=== PATIENT | female | born 1985 | race Two or more races ===

== ENCOUNTER 2020-12-09 17:31 | Inpatient (IN) ==
[2020-12-09] MEDS ORDERED: MAGNESIUM HYDROXIDE SUSP 30 ML UDC PO PRN (19:01)
[2020-12-09] MEDS ORDERED: SODIUM CHLORIDE 0.65% NA SOLN 45 ML (OCEAN) PRN (19:01)
[2020-12-09] MEDS ORDERED: ACETAMINOPHEN 325 MG TAB PO PRN (19:01)
[2020-12-09] MEDS ORDERED: ALUMINUM/MAGNESIUM SUSP 30 ML UDC PO PRN (19:01)
[2020-12-09] MEDS ORDERED: BISMUTH SUBSALICYLATE LIQD 236 ML PO PRN (19:01)
[2020-12-09] MEDS ORDERED: OLANZapine 5 MG TABLET PO PRN (21:46)
[2020-12-09] MEDS ORDERED: NON-FORMULARY PATIENT'S OWN MED EXT SCH (22:00)
[2020-12-09] MEDS: BENZTROPINE MESYLATE 1 MG TAB PO SCH (22:41)
[2020-12-09] MEDS: TRETINOIN 0.05% EXT SCH (22:42)
[2020-12-09] MEDS: NICOTINE 21 MG/24 HR TDSY TD SCH (22:42)
[2020-12-10] MEDS: VIENVA PO SCH (08:58)
[2020-12-10] MEDS: BENZTROPINE MESYLATE 1 MG TAB PO SCH ×2 (09:00→20:41)
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
[2020-12-10] MEDS: NICOTINE POLACRILEX 2 MG GUM MT PRN ×2 (14:42→18:59)
[2020-12-10] MEDS: clonazePAM 0.5 MG TAB PO PRN (14:43)
[2020-12-10] MEDS: LURASIDONE HCL 40 MG TAB PO SCH (17:52)
[2020-12-10] MEDS ORDERED: diphenhydrAMINE 50 MG/ML VIAL PO PRN (20:38)
[2020-12-10] MEDS: NICOTINE 21 MG/24 HR TDSY TD SCH (20:42)
[2020-12-10] MEDS: TRETINOIN 0.05% EXT SCH (20:42)
[2020-12-10] MEDS ORDERED: diphenhydrAMINE Capsule 25 MG CAP PO PRN ×2 (22:22→22:45)
[2020-12-11] MEDS: BENZTROPINE MESYLATE 1 MG TAB PO SCH (08:25)
[2020-12-11] MEDS: VIENVA PO SCH (08:25)
[2020-12-11] MEDS: SPIRONOLACTONE 25 MG TAB PO SCH (08:27)
[2020-12-11] MEDS: hydrOXYzine HCl 25 MG TAB PO PRN ×2 (08:28→22:17)
[2020-12-11] MEDS ORDERED: SERTRALINE HCL 50 MG TABLET PO SCH (09:00)
[2020-12-11 09:15] LABS: Glucose Fasting 101 mg/dl (70-99)
[2020-12-11 09:21] LABS: Chol HDL Ratio 3; Cholesterol 213 mg/dl (0-200); HDL Cholesterol 85 mg/dl; LDL Cholesterol Calculated 112 mg/dl; Triglycerides 82 mg/dl (0-150); VLDL Cholesterol 16 mg/dl
[2020-12-11] MEDS: NICOTINE POLACRILEX 2 MG GUM MT PRN ×3 (09:35→21:09)
--- NOTE | 2020-12-11 13:59 | Psychiatric Progress Note ---
Date of Service December 11, 2020 Impression / Recommendations Impression ALCIDES JAY is a 35-year-old woman who currently lives in [facility] and is in the midst of re-locating to [place] temporarily with her boyfriend, has a history of BPAD vs schizoaffective disorder, PTSD, opioid use disorder in sustained remission, 6 prior suicide attempts and 6 prior psychiatric hospitalizations (last 2017 at [facility]), and was admitted on 12/09/20 20:50 on a 201 voluntary commitment as an OSH referral from [facility] for worsening depression and PTSD symptoms with paranoia.The patient is deemed unstable and requires psychiatric hospitalization for diagnostic clarification, safety and stabilization, medication management and development of further coping skills. Differential includes MDD with psychotic features vs BPAD vs substance- induced/withdrawal (negative UDS and denies any significant substance use but recently ran out of her script for outpatient benzodiazepines) vs complex PTSD vs BPD. Discussed medication and treatment options at length including risks/be nefits/alteratives. Notable while at [facility] she received a one time dose of lamictal 400mg, after she had not taken her outpatient script for 2 weeks, so will monitor for Lazo Severo reaction and avoid restarting lamictal at this point especially since adherence can be challenging for her and this increases the risk of this potential fatal side effect. Also discussed reducing her Klono pin dosage and changing to prn and that only 5 tabs will be provided on discharge which she understands, reviewed SCHEDULING AGENT-last Klonopin script was written in June but not picked up until 11/04/20 and she has one remaining refill so will need to ensure this is canceled with pharmacy before discharge. She would like to try sertraline for depression and PTSD instead of Effexor so will make this change. Even with the tardive dyskinesia she wishes to continue with latuda so will restart this at a lower dose especially given ongoing paranoia. She finds benadryl rather than cogentin most helpful for TD so will continue this. -MNPR for psychiatric reasons due to paranoid ideation/emotional lability with periods of high anxiety (1) Tardive dyskinesia: (2) Major depression, recurrent: (3) Post traumatic stress disorder (PTSD): (4) Major depressive disorder with psychotic features: 12/10/20-Added benadryl 50 mg BID prn for her request for tardive dyskinesia symptoms. Continue with latuda, sertraline, Klonopin prn. No signs of acute paranoia or psychosis. Cholesterol and glucose slightly elevated, other fasting lipids normal, will need to be monitored closely if she remains on latuda long-term and emphasizes need to remain at lowest possible effective dose especially given baseline of TD. 12/09/20-The patient was admitted to the [facility] on q15 min checks (behavioral with suicide precautions) for safety. The patient will participate in group, recreational, and milieu therapies and will be offered additional individual and family sessions as clinically appropriate. -Start latuda 20mg qdinner. Has TD present. Getting baseline fasting labs. 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 -NRT patch and gum Inventory Assets Strengths: supportive partner, outpatient providers Needs: coping skills, medication adjustment Risk Factors Assessment : Yes Do You Have Access To A Gun?: No Health Problems: Yes Mental Health Diagnoses: Yes Substance Use Disorders: No Previous Attempt: Yes Family History of Suicide: Yes Previous Psychiatric Hospitalization: Yes Hopelessness: No Smoker: Yes Protective Factors Assessment Responsible for Young Children: Yes Stable Relationships: Yes Supportive Family: Yes Good Rapport with Provider: Yes Interval History Identifying Information ALCIDES JAY is a 35-year-old woman who currently lives in [facility] and is in the midst of re-locating to [place] temporarily with her boyfriend, has a history of BPAD vs schizoaffective disorder, PTSD, opioid use disorder in sustained remission, 6 prior suicide attempts and 6 prior psychiatric hospitalizations (last 2017 at [facility]), and was admitted on 12/09/20 20:50 on a 201 voluntary commitment as an OSH referral from [facility] for worsening depression and PTSD symptoms with paranoia. Chief Complaint "I'm trying to stay focused on the good things". Review of Systems Sleep Information Total Hours of Sleep: 8 Sleep Comments: pt on q-15 minute checks Meal Information Percent Meal Consumed - Breakfast: 80 Percent Meal Consumed - Lunch: 0 Percent Meal Consumed - Dinner: 50 Nutrition Comment: refused - per meal record Subjective Subjective Patient was seen & assessed and interval progress reviewed with treatment team nursing and social work. Today she reports improving mood and reflects that "I let me paranoia overwhelm me" prior to admission. She feels safe here and wants to continue working on coping skills which she is finding helpful. Had some nightmares last night but feels she is processing these well this morning and was able to fall back asleep. Continues to have anxiety and feel overwhelmed by pressure from family and trying to make right decisions about where to live and raise her children. Reflects on her goal of returning to work in the future. Denies any medication side effects. Physical Exam Psychiatric Orientation: alert and oriented x 3 Apperance: appropriately dressed and appropriately groomed Eye Contact: good eye contact Motor Behavior: steady gait and station and + EPS (TD visible with mouth movements and foot movement); n akathisia and n tremor Speech: normal rate/rhythm/volume of speech Affect: + anxious affect Mood: + anxious mood; no depressed mood Thought Process: + circumstantial thought process Thought Content: + cognitive distortions and reality based without delusions Suicidal Thoughts: denies suicidal thoughts Homicidal Thoughts: denies homicidal thoughts Hallucinations: no auditory hallucinations and no visual hallucinations Cognition: recent memory grossly intact, remote memory grossly intact, attention grossly intact and language grossly intact Estimated Intelligence: consistent with education level Insight: + fair insight Judgement: + limited judgement Vital Signs (Past 24 Hours) Last Vital Signs Temp 36.9 C 12/11/20 06:53 Pulse 74 12/11/20 06:54 Resp 16 12/11/20 06:53 BP 107/74 12/11/20 06:54 Results & Data ([facility]) Laboratory Results Laboratory Results - last 24 hr 12/11/20 08:21 Fasting Glucose 101 H Triglycerides 82 Cholesterol 213 H LDL Cholesterol, Calc 112 VLDL Cholesterol, Calc 16 HDL Cholesterol 85 Cholesterol/HDL Ratio 3 Current Inpatient Medications Current Inpatient Medications: Current Inpatient Medications Acetaminophen (Acetaminophen 325 Mg Tab) 650 mg PO Q4H PRN PRN Reason: Headache or Minor Fever Stop: 01/08/21 19:00 Al Hydrox/Mg Hydrox/Simethicone (Aluminum/Magnesium Susp 30 Ml Udc) 30 ml PO Q4H PRN PRN Reason: GI Upset Stop: 01/08/21 19:00 Benztropine Mesylate (Benztropine Mesylate 1 Mg Tab) 1 mg PO BID АНДРЕЙ Stop: 01/08/21 21:59 Last Admin: 12/11/20 08:25 Dose: 1 mg Documented by: Bismuth Subsalicylate (Bismuth Subsalicylate Liqd 236 Ml) 15 ml PO PRN PRN PRN Reason: Loose Stool Stop: 01/08/21 19:00 Clonazepam (Clonazepam 0.5 Mg Tab) 0.5 mg PO DAILY PRN PRN Reason: Anxiety/Agitation Stop: 01/09/21 13:49 Last Admin: 12/10/20 14:43 Dose: 0.5 mg Documented by: Diphenhydramine HCl (Diphenhydramine Capsule 25 Mg Cap) 50 mg PO BID PRN PRN Reason: Anxiety/Insomnia Stop: 01/10/21 20:59 Hydroxyzine HCl (Hydroxyzine Hcl 25 Mg Tab) 50 mg PO HSZ PRN PRN Reason: Insomnia Stop: 01/08/21 19:00 Hydroxyzine HCl (Hydroxyzine Hcl 25 Mg Tab) 25 mg PO Q4H PRN PRN Reason: Anxiety Stop: 01/08/21 19:00 Last Admin: 12/11/20 08:28 Dose: 25 mg Documented by: Lurasidone HCl (Lurasidone Hcl 40 Mg Tab) 20 mg PO QDD [facility] Stop: 01/09/21 17:44 Last Admin: 12/10/20 17:52 Dose: 20 mg Documented by: Magnesium Hydroxide (Magnesium Hydroxide Susp 30 Ml Udc) 30 ml PO DAILY PRN PRN Reason: Constipation Stop: 01/08/21 19:00 Miscellaneous (Remove Nicoderm Patch) 1 ea N/A 2159 [facility] Stop: 01/09/21 21:58 Last Admin: 12/10/20 20:41 Dose: 1 ea Documented by: Miscellaneous (Zonisamide 100 Mg: Order Awaiting Action) 1 ea N/A QS [facility] Stop: 01/09/21 15:59 Last Admin: 12/11/20 08:24 Dose: Not Given Documented by: Nicotine (Nicotine 21 Mg/24 Hr Tdsy) 21 mg TD 2200 АНДРЕЙ Stop: 01/08/21 21:59 Last Admin: 12/10/20 20:42 Dose: 21 mg Documented by: Nicotine Polacrilex (Nicotine Polacrilex 2 Mg Gum) 1 piece MT PRN PRN PRN Reason: nicotine craving Stop: 01/09/21 13:47 Last Admin: 12/11/20 09:35 Dose: 1 piece Documented by: *Snow*Non- Formulary Patient's Own Med 1 ea PO QAM АНДРЕЙ Stop: 01/09/21 08:59 Last Admin: 12/11/20 08:25 Dose: 1 ea Documented by: *Tretinoin 0.05%*Non -Formulary Patient's Own Med 1 ea EXT HS АНДРЕЙ Stop: 01/08/21 21:59 Last Admin: 12/10/20 20:42 Dose: 1 ea Documented by: Olanzapine (Olanzapine 5 Mg Tablet) 5 mg PO HS PRN PRN Reason: Anxiety/Agitation Stop: 01/08/21 21:59 Last Admin: 12/09/20 22:43 Dose: 5 mg Documented by: Sertraline HCl (Sertraline Hcl 50 Mg Tablet) 25 mg PO QAM АНДРЕЙ Stop: 01/10/21 08:59 Last Admin: 12/11/20 08:26 Dose: 25 mg Documented by: Sodium Chloride (Sodium Chloride 0.65% Na Soln 45 Ml ([place])) 1 - 2 sprays NA PRN PRN PRN Reason: Nasal Dryness/Congestion Stop: 01/08/21 19:00 Spironolactone (Spironolactone 25 Mg Tab) 50 mg PO DAILY АНДРЕЙ Stop: 01/10/21 08:59 Last Admin: 12/11/20 08:27 Dose: 50 mg Documented by: Mental Health & Subst Abuse Tx Therapist Name of Therapist: [facility] [employer] Name of [employer]: Julianne Osman Phone Number for [employer]: [phone] Post Discharge Appointments Contact Information Discharge Discharge Address: [address] [place] [address]
[2020-12-11] MEDS ORDERED: DOCUSATE SODIUM/SENNA 50/8.6MG TAB PO PRN (15:58)
[2020-12-11] MEDS: clonazePAM 0.5 MG TAB PO PRN (16:46)
[2020-12-11] MEDS: LURASIDONE HCL 40 MG TAB PO SCH (16:46)
[2020-12-11] MEDS: diphenhydrAMINE Capsule 25 MG CAP PO PRN (19:40)
[2020-12-11] MEDS ORDERED: diphenhydrAMINE Capsule 25 MG CAP PO SCH (21:00)
[2020-12-11] MEDS: ZONISAMIDE 100 MG CAPSULE PO SCH (21:09)
[2020-12-11] MEDS: NICOTINE 21 MG/24 HR TDSY TD SCH (21:10)
[2020-12-11] MEDS: TRETINOIN 0.05% EXT SCH (21:12)
[2020-12-12] MEDS: SPIRONOLACTONE 25 MG TAB PO SCH (08:31)
[2020-12-12] MEDS: SERTRALINE HCL 50 MG TABLET PO SCH (08:32)
[2020-12-12] MEDS: VIENVA PO SCH (08:32)
[2020-12-12] MEDS: NICOTINE POLACRILEX 2 MG GUM MT PRN ×3 (09:54→21:14)
[2020-12-12] MEDS: hydrOXYzine HCl 25 MG TAB PO PRN ×3 (14:17→23:49)
[2020-12-12] MEDS: clonazePAM 0.5 MG TAB PO PRN (16:28)
[2020-12-12] MEDS: LURASIDONE HCL 40 MG TAB PO SCH (17:18)
--- NOTE | 2020-12-12 19:04 | Psychiatric Progress Note ---
Date of Service December 12, 2020 Impression / Recommendations Impression ALCIDES JAY is a 35-year-old woman who currently lives in [facility] and is in the midst of re-locating to [place] temporarily with her boyfriend, has a history of BPAD vs schizoaffective disorder, PTSD, opioid use disorder in sustained remission, 6 prior suicide attempts and 6 prior psychiatric hospitalizations (last 2017 at [place]), and was admitted on 12/09/20 20:50 on a 201 voluntary commitment as an OSH referral from [facility] for worsening depression and PTSD symptoms with paranoia.The patient is deemed unstable and requires psychiatric hospitalization for diagnostic clarification, safety and stabilization, medication management and development of further coping skills. Diagnosis felt to be most consistent with PTSD. -MNPR for psychiatric reasons due to periods of high anxiety (1) Tardive dyskinesia: (2) Major depression, recurrent: (3) Post traumatic stress disorder (PTSD): (4) Major depressive disorder with psychotic features: 12/12/20-Continue current medications. Reviewed resources she can utilize and confirmed that she has an appointment with a new PCP in [place] next week. She agrees she will contact our unit to have our records faxed to the new provider once she returns to [place]. Future-oriented about her goals of returning to work and setting a good example for her sons. 12/11/20-Increased sertraline from 25 mg qd to 50mg qd for depression and PTSD. 12/10/20-Added benadryl 50 mg BID prn for her request for tardive dyskinesia symptoms. Continue with latuda, sertraline, Klonopin prn. No signs of acute paranoia or psychosis. Cholesterol and glucose slightly elevated, other fasting lipids normal, will need to be monitored closely if she remains on latuda long- term and emphasizes need to remain at lowest possible effective dose especially given baseline of TD. 12/09/20-The patient [facility] ([facility] inpatient mental health unit) on q15 min checks (behavioral with suicide precautions) for safety. The patient will participate in group, recreational, and milieu therapies and will be offered additional individual and family sessions as clinically appropriate. -Start latuda 20mg qdinner. Has TD present. Getting baseline fasting labs. 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 -NRT patch and gum Inventory Assets Strengths: supportive partner, outpatient providers Needs: coping skills, medication adjustment Risk Factors Assessment : Yes Do You Have Access To A Gun?: No Health Problems: Yes Mental Health Diagnoses: Yes Substance Use Disorders: No Previous Attempt: Yes Family History of Suicide: Yes Previous Psychiatric Hospitalization: Yes Hopelessness: No Smoker: Yes Protective Factors Assessment Responsible for Young Children: Yes Stable Relationships: Yes Supportive Family: Yes Good Rapport with Provider: Yes Interval History Identifying Information ALCIDES JAY is a 35-year-old woman who currently lives in [facility] and is in the midst of re-locating to [place] temporarily with her boyfriend, has a history of BPAD vs schizoaffective disorder, PTSD, opioid use disorder in sustained remission, 6 prior suicide attempts and 6 prior psychiatric hospitalizations (last 2017 at [place]), and was admitted on 12/09/20 20:50 on a 201 voluntary commitment as an OSH referral from [facility] for worsening depression and PTSD symptoms with paranoia. Chief Complaint "I'm nervous about leaving but I'm ready to get a job and show my kids what a good mom I can be". Review of Systems Sleep Information Total Hours of Sleep: 7.5 Sleep Comments: pt on q-15 minute checks Meal Information Percent Meal Consumed - Breakfast: 100 Percent Meal Consumed - Lunch: 100 Percent Meal Consumed - Dinner: 75 Nutrition Comment: refused - per meal record Subjective Subjective Patient was seen & assessed and interval progress reviewed with treatment team nursing and social work. Julio reports stable mood with some anxiety about leaving the hospital tomorrow for planned morning discharge. She denies any paranoia or psychosis symptoms and feels her PTSD is stable. Mood is stable. She is future-oriented about seeing her disability case manager before returning to [place] where she has an appointment scheduled with her new PCP there for next week. She plans to look into job options as she would like to start working again once and setting a good example for her kids. Discusses the challenge of balancing her family's worries about her being further from home with her desire to start fresh in a new place where she won't have as many trauma-reminders. No medicat ion side effects. Physical Exam Psychiatric Orientation: alert and oriented x 3 Apperance: appropriately dressed and appropriately groomed Eye Contact: good eye contact Motor Behavior: steady gait and station and + EPS (TD visible with mouth movements and foot movement); n akathisia and n tremor Speech: normal rate/rhythm/volume of speech Affect: euthymic affect Mood: + anxious mood; no depressed mood Thought Process: + circumstantial thought process Thought Content: reality based without delusions Suicidal Thoughts: denies suicidal thoughts Homicidal Thoughts: denies homicidal thoughts Hallucinations: no auditory hallucinations and no visual hallucinations Cognition: recent memory grossly intact, remote memory grossly intact, attention grossly intact and language grossly intact Estimated Intelligence: consistent with education level Insight: + fair insight Vital Signs (Past 24 Hours) Last Vital Signs Temp 36.9 C 12/12/20 06:53 Pulse 82 12/12/20 06:56 Resp 18 12/12/20 06:53 BP 101/62 12/12/20 06:56 Pulse Ox 98 12/12/20 06:53 Results & Data ([facility]) Current Inpatient Medications Current Inpatient Medications: Current Inpatient Medications Acetaminophen (Acetaminophen 325 Mg Tab) 650 mg PO Q4H PRN PRN Reason: Headache or Minor Fever Stop: 01/08/21 19:00 Last Admin: 12/12/20 16:23 Dose: 650 mg Documented by: Al Hydrox/Mg Hydrox/Simethicone (Aluminum/Magnesium Susp 30 Ml Udc) 30 ml PO Q4H PRN PRN Reason: GI Upset Stop: 01/08/21 19:00 Bismuth Subsalicylate (Bismuth Subsalicylate Liqd 236 Ml) 15 ml PO PRN PRN PRN Reason: Loose Stool Stop: 01/08/21 19:00 Clonazepam (Clonazepam 0.5 Mg Tab) 0.5 mg PO DAILY PRN PRN Reason: Anxiety/Agitation Stop: 01/09/21 13:49 Last Admin: 12/12/20 16:28 Dose: 0.5 mg Documented by: Diphenhydramine HCl (Diphenhydramine Capsule 25 Mg Cap) 50 mg PO BID PRN PRN Reason: Anxiety/Insomnia Stop: 01/10/21 20:59 Last Admin: 12/11/20 19:40 Dose: 50 mg Documented by: Hydroxyzine HCl (Hydroxyzine Hcl 25 Mg Tab) 50 mg PO HSZ PRN PRN Reason: Insomnia Stop: 01/08/21 19:00 Last Admin: 12/11/20 22:17 Dose: 50 mg Documented by: Hydroxyzine HCl (Hydroxyzine Hcl 25 Mg Tab) 25 mg PO Q4H PRN PRN Reason: Anxiety Stop: 01/08/21 19:00 Last Admin: 12/12/20 14:17 Dose: 25 mg Documented by: Lurasidone HCl (Lurasidone Hcl 40 Mg Tab) 20 mg PO QDD [facility] Stop: 01/09/21 17:44 Last Admin: 12/12/20 17:18 Dose: 20 mg Documented by: Magnesium Hydroxide (Magnesium Hydroxide Susp 30 Ml Udc) 30 ml PO DAILY PRN PRN Reason: Constipation Stop: 01/08/21 19:00 Miscellaneous (Remove Nicoderm Patch) 1 ea N/A 0599 [facility] Stop: 01/09/21 21:58 Last Admin: 12/11/20 21:10 Dose: 1 ea Documented by: Nicotine (Nicotine 21 Mg/24 Hr Tdsy) 21 mg TD 2200 [facility] Stop: 01/08/21 21:59 Last Admin: 12/11/20 21:10 Dose: 21 mg Documented by: Nicotine Polacrilex (Nicotine Polacrilex 2 Mg Gum) 1 piece MT PRN PRN PRN Reason: nicotine craving Stop: 01/09/21 13:47 Last Admin: 12/12/20 16:28 Dose: 1 piece Documented by: *Snow*Non- Formulary Patient's Own Med 1 ea PO QAM [facility] Stop: 01/09/21 08:59 Last Admin: 12/12/20 08:32 Dose: 1 ea Documented by: *Tretinoin 0.05%*Non -Formulary Patient's Own Med 1 ea EXT HS АНДРЕЙ Stop: 01/08/21 21:59 Last Admin: 12/11/20 21:12 Dose: 1 ea Documented by: Senna/Docusate Sodium (Docusate Sodium/Senna 50/8.6mg Tab) 1 tab PO BID PRN PRN Reason: Constipation Stop: 01/10/21 20:59 Last Admin: 12/11/20 22:17 Dose: 1 tab Documented by: Sertraline HCl (Sertraline Hcl 50 Mg Tablet) 50 mg PO QAM [facility] Stop: 01/11/21 08:59 Last Admin: 12/12/20 08:32 Dose: 50 mg Documented by: Sodium Chloride (Sodium Chloride 0.65% Na Soln 45 Ml ([place])) 1 - 2 sprays NA PRN PRN PRN Reason: Nasal Dryness/Congestion Stop: 01/08/21 19:00 Spironolactone (Spironolactone 25 Mg Tab) 50 mg PO DAILY АНДРЕЙ Stop: 01/10/21 08:59 Last Admin: 12/12/20 08:31 Dose: 50 mg Documented by: Zonisamide (Zonisamide 100 Mg Capsule) 100 mg PO HS АНДРЕЙ Stop: 01/10/21 21:59 Last Admin: 12/11/20 21:09 Dose: 100 mg Documented by: Mental Health & Subst Abuse Tx Psychiatrist Name of Psychiatrist: Kisha Clarendon Psychiatrist's Date of Appointment with Psychiatrist: 02/13/21 Time of Appointment with Psychiatrist: 3:30 p.m. Psychiatric Appointment Comment: First available - On cancellation list Therapist Name of Therapist: [facility] Longshore Equipment Operator Name of Longshore Equipment Operator: Julianne Osman Phone Number for Longshore Equipment Operator: [phone] Date of Appointment with Longshore Equipment Operator: 12/25/20 Time of Appointment with Longshore Equipment Operator: 1:45 p.m. Case Management Appointment Comment: [address] [facility] [place], [place] [address] Post Discharge Appointments Primary Care Physician Name Of Family Doctor: Please establish a PCP within 30 days in [place] for continued medication Primary Care Phone Number: needs/refills Contact Information Discharge Discharge Address: [address] [place] [address] DocJAZZY [id number]
[2020-12-12] MEDS: diphenhydrAMINE Capsule 25 MG CAP PO PRN (19:39)
[2020-12-12] MEDS: ZONISAMIDE 100 MG CAPSULE PO SCH (21:14)
[2020-12-12] MEDS: TRETINOIN 0.05% EXT SCH (21:14)
[2020-12-12] MEDS: NICOTINE 21 MG/24 HR TDSY TD SCH (21:15)
[2020-12-13] MEDS: VIENVA PO SCH (05:06)
[2020-12-13] MEDS: SERTRALINE HCL 50 MG TABLET PO SCH (05:07)
[2020-12-13] MEDS: SPIRONOLACTONE 25 MG TAB PO SCH (05:07)
[2020-12-13] MEDS: NICOTINE POLACRILEX 2 MG GUM MT PRN (05:07)
[2020-12-13] MEDS: clonazePAM 0.5 MG TAB PO PRN (05:35)
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
--- NOTE | 2020-12-23 12:21 | Coding Query ---
CODING QUERY To promote full compliance with coding requirements relating to patient care, provider participation is requested in all cases of medical biller/coder uncertainty. Please assist us with the question(s) below: Coding Question(s): Major Depression, recurrent and Major Depressive Disorder with psychotic features was documented throughout the record and Post Traumatic Stress Disorder was documented as well, with the Discharge Summary documenting Post Traumatic Stress Disorder under the Principal Diagnosis area. Please specify below, in your clinical opinion. ( ) Both Post Traumatic Stress Disorder and Major Depressive Disorder, recurrent, with psychotic features were treated equally (X ) Post Traumatic Stress Disorder was treated more ( ) Major Depressive Disorder, recurrent, with psychotic features was treated more ( ) Other: Please Specify Physician's Response(s): PTSD was determined to be the primary diagnosis. Other diagnoses were ruled out. Thank you Shanell Burch Principal Diagnosis: "that condition established after study, to be chiefly responsible for occasioning the admission of the patient to the hospital for care." Co-Existing Principal Diagnosis: "when two or more diagnoses equally meet the criteria for principal diagnosis as determined by the circumstances of admission, diagnostic work up, and/or therapy provided, and the Alphabetic Index, Tabular List, or another coding guideline does not provide sequencing direction, any one of the diagnoses may be sequenced first." "When the physician has documented what appears to be a current diagnosis in the body of the record, but has not included the diagnosis in the final diagnostic statement, the physician should be asked whether the diagnosis should be added." (Source [facility] 2 QTR90. p3-4) RENE
== END 2020-12-13 05:45 | disposition home or self-care (01) | DRG 882 ==
LOC: 3S 20:50